=== PATIENT | female | born 1930 | race Caucasian/White ===

== ENCOUNTER 2016-09-23 20:10 | Observation (INO) | payer MEDICARE ==
[2016-09-23 20:53] LABS: URINE APPEARANCE CLEAR; URINE BILIRUBIN NEGATIVE (NEGATIVE); URINE BLOOD 1+ (NEGATIVE); URINE COLOR YELLOW; URINE GLUCOSE (UA) NEGATIVE (NEGATIVE); URINE LEUKOCYTE ESTERASE NEGATIVE (NEGATIVE); URINE NITRITE NEGATIVE (NEGATIVE); URINE PROTEIN 2+ (NEGATIVE); URINE UROBILINOGEN NORMAL (0-1 mg/dl)
[2016-09-23] MEDS ORDERED: ALBUTEROL/IPRATROPIUM 2.5/0.5 MG 3 ML/EACH DOSE ONE (21:01)
[2016-09-23 21:06] LABS: URINE EPITHELIAL CELLS 0 /hpf
[2016-09-23 21:07] LABS: URINE BACTERIA FEW
[2016-09-23 21:20] LABS: BASO % 0.2 % (0.2-1.0); EOS % 0.5 % (0.9-2.9); HEMATOCRIT 44.9 % (37.0-47.0); HEMOGLOBIN 14.7 gm/l (12.0-16.0); IMM NEUT% 0.3 % (0-1); LYMPH # 0.8 (1.0-4.8); LYMPH % 13.5 % (15-45); MEAN CELL VOLUME 95.3 fl (81.0-99.0); MEAN CORPUSCULAR HEMOGLOBIN 31.2 pg (27.0-31.0); MEAN CORPUSCULAR HGB CONC 32.7 g/dl (33.0-37.0); MEAN PLATELET VOLUME 10.3 fl (7.4-10.4); MONO # 0.4 (0.0-0.8); MONO % 5.8 % (4-12); NEUT % 79.7 % (43-75); PLATELET COUNT 164 K/mm3 (130-400); RED CELL DISTRIBUTION WIDTH 13.5 % (11.5-14.5)
[2016-09-23] MEDS ORDERED: PREDNISONE 20 MG TABLET ONE (21:26)
[2016-09-23 21:33] LABS: TROPONIN I 0.03 ng/ml (0.0-0.06)
[2016-09-23 21:37] LABS: CKMB ISOENZYME 3.4 ng/ml (0.6-6.3)
[2016-09-23 21:48] LABS: ALB/GLOB RATIO 1.5 (>1.0); ALBUMIN 4.1 gm/dL (3.5-5.7); CALCIUM 9.5 mg/dL (8.6-10.3)
[2016-09-23] MEDS ORDERED: ACETAMINOPHEN 160 MG/5 ML ORAL.SOLN UDCUP ONE (23:03)
[2016-09-23] MEDS ORDERED: ALBUTEROL SULFATE 5MG/ML INHALANT 20 ML BOT ONE (23:05)
[2016-09-23] MEDS ORDERED: IPRATROPIUM BROMIDE 0.5 MG/2.5 ML DOSE ONE (23:06)
[2016-09-23] MEDS ORDERED: LEVOFLOXACIN 500 MG/D5W 100 ML 100 ML IV ONE (23:09)
[2016-09-23 23:59] VITALS: BMI 26.2
[2016-09-24] MEDS ORDERED: ACETAMINOPHEN 325 MG TABLET PO PRN (02:08)
[2016-09-24] MEDS ORDERED: MAGNESIUM HYDROXIDE 30 ML UDCUP PO PRN (02:08)
[2016-09-24] MEDS ORDERED: MENTHOL/CETYLPYRD 1 EACH LOZENGE PO PRN (02:08)
[2016-09-24] MEDS ORDERED: BLISTEX LIPSTICK 1 EACH TP PRN (02:08)
[2016-09-24] MEDS ORDERED: SODIUM CHLORIDE 0.9% 100 ML IV PRN (02:08)
[2016-09-24] MEDS ORDERED: CALCIUM CARBONATE 500 MG TAB.CHEW PO PRN (02:08)
[2016-09-24] MEDS ORDERED: BISACODYL 5 MG TABLET.EC PO PRN (02:08)
[2016-09-24] MEDS ORDERED: BISACODYL 10 MG SUP PR PRN (02:08)
[2016-09-24] MEDS ORDERED: SODIUM CHLORIDE 0.9% 1,000 ML IV SCH (02:15)
[2016-09-24] MEDS ORDERED: SODIUM CHLORIDE 0.9% 500 ML IV SCH (02:15)
[2016-09-24] MEDS ORDERED: INSULIN ASPART (DOSE) 100 UNITS/1 ML SUB-Q PRN (02:25)
[2016-09-24] MEDS ORDERED: DILTIAZEM HCL 30 MG TABLET PO ONE (02:51)
[2016-09-24] MEDS ORDERED: PUMP TUBING ONE (02:51)
[2016-09-24] MEDS ORDERED: DILTIAZEM HCL 5 MG/ML 5ML VIAL IV ONE (03:48)
--- NOTE | 2016-09-24 06:09 | HP ---
DOUGIE CHILEL [id number] DATE OF ADMISSION: September 24, 2016 CHIEF COMPLAINT: Weakness along with urinary frequency and cough. HISTORY OF PRESENT ILLNESS: The patient is an 85-year-old brought in by family due to cough and weakness along with urinary frequency. Patient reports that she had fallen when getting out of bed the other day and had to lie on the floor about an hour and then her caregiver was able to return her to bed. She denies fevers or chills, denies dysuria but has had some urinary frequency. She has had a cough but has not had a change in her sputum and no major breathing changes. She was seen by Dr. Lim on September 23, 2016 and had a normal urinalysis, was given a prednisone prescription but had not been able to pick this up yet. Due to ongoing weakness, her family brought her to the emergency department and she was noted to have significant difficulty getting up to even walk, and so hospitalist service was requested to admit. PAST MEDICAL HISTORY: Taken from old records as well as discussion with the patient. 1. Chronic obstructive pulmonary disease and had seen Dr. Helton in 2013. Thought to have asthma. At one point in 2009, she was thought to possibly have sarcoidosis, but this was not felt to be the case. 2. Hypertension. 3. Osteoporosis with previous T11 compression fracture. 4. Gastroesophageal reflux disease. 5. Diabetes. 6. History of transient ischemic attack. CODE STATUS: DO NOT RESUSCITATE. PAST SURGICAL HISTORY: 1. Back surgery. 2. Bladder resuspension times two. 3. Hysterectomy for menorrhagia. 4. Cataract replacement. ALLERGIES: NO KNOWN DRUG ALLERGIES. MEDICATIONS: Current medications are not available at this time. Previously she had been on: 1. Acetaminophen. 2. Atorvastatin. 3. Advair. 4. Gabapentin. 5. Glimepiride. 6. [place]. 7. Levothyroxine. 8. Losartan. 9. Metoprolol. 10. Montelukast. 11. Pantoprazole. 12. Potassium gluconate. 13. Ranitidine. 14. Bactrim. SOCIAL HISTORY: She lives at [facility], has a caregiver. She is times two, has three kids. History of smoking, quit about 20 years ago. Reports alcohol now and then. No marijuana or other drugs. Goes to [employer]. Hobbies, she reports doing less but previously enjoyed fishing. FAMILY HISTORY: Father in his 80s. Mom in her 80s. REVIEW OF SYSTEMS: Eyes had cataracts, otherwise doing okay. Ears, okay except for hearing aids. Nose is okay. Mouth is okay. She has dentures. Neck, no complaints. She has had some increased cough but no sputum. No heart complaints, no stomach complaints, no nausea, vomiting, no constipation or diarrhea. No dysuria. Some urinary frequency. Legs, no swelling, no rashes. She has had weakness in her legs but appears to be bilateral. Arms have been okay. Memory, "not worth a damn." She is right-handed. PHYSICAL EXAM: GENERAL: Non-toxic female, color is good. VITAL SIGNS: Temperature 99.2, blood pressure 140/90, pulse 105, saturation 96% on room air, respirations 16. HEAD: Head is normocephalic, atraumatic. EYES: Are normal. EARS: Hearing aids present bilaterally. NOSE: Is normal. MOUTH: Oropharynx is unremarkable with dentures. NECK: No jugular venous distension, no masses. LUNGS: Have some wheezes, right greater than left. Some crackles noted posterior bases. HEART: Slightly hyperdynamic, tachycardic but no significant murmur is noted. ABDOMEN: Soft, nontender, nondistended. Bowel sounds are normal. GENITOURINARY: Exam is deferred. EXTREMITIES: Legs, no clubbing, cyanosis or edema. Dorsalis pedis difficult to feel but posterior tibialis strong bilaterally. Arms, pulses are good. Capillary refill appears to be good. Good grasp bilaterally. NEUROLOGIC: Cranial nerves appear mostly intact although there does appear to be a mild left-sided facial asymmetry with slight loss of the nasolabial fold on the left. She also has slightly slower finger to nose movement on the left. She is oriented to location and month but guesses that it is 2006 instead of 2016. Gait not tested at this time. LABORATORY: White count 6.2, hemoglobin 14.7, platelets 166, sed rate 28, CR-P 5.7, sodium 139, potassium 3.5, chloride 102, CO2 26, BUN 11, creatinine 1.0, glucose 187, calcium 9.5. Liver function tests are normal. CPK 242, troponin 0.03, CK-MB 3.4, BNP 159, albumin 4.1, globulin 2.8. Urinalysis specific gravity 1.010, 2+ protein, 1 to 3 red cells, 1 to 2 white cells. ELECTROCARDIOGRAM: Sinus rhythm 72 beats per minute. Nonspecific ST-T wave changes. IMAGING: Chest x-ray suggests some mild hilar lymphadenopathy, slightly reticular pattern noted bilaterally. Kyphosis noted. Hiatal hernia versus infiltrate suggested on the lateral view. ASSESSMENT AND PLAN: 1. Weakness, nonspecific. Consider for subacute stroke versus illness. Plan physical therapy and occupational therapy evaluation, and if diagnosis not clear, could consider whether further imaging is desired. Patient's family had previously declined CT of the head. If patient is unable to improve, consider revision of home setting and/or other placement. 2. History of chronic obstructive pulmonary disease with wheezes. Plan to review chest x-ray with radiologist further. Patient did get a dose of steroids in the emergency room but holding off on antibiotics at this time. Blood cultures are done. If respiratory status is unclear, could consider CT of the chest. 3. History of urinary frequency but with normal urinalysis times two. Unclear if patient has previously been on suppressive therapy with Bactrim and this may be obscuring somewhat. We will plan to clarify medications in the morning and consider if further treatment appropriate. 4. Hypertension. Plan to check her medications in the morning. 5. Diabetes mellitus type 2. Blood sugar is 187 at this time. Would expect this to go up somewhat with steroid administration. Will be using capillary blood glucose and sliding scale in addition to her regular home medicines. 6. History of atrial fibrillation off anticoagulation due to anemia. She is currently in sinus rhythm and rate is generally controlled. 7. DO NOT RESUSCITATE status. 8. Venous thrombosis prophylaxis, anticipate use of Lovenox. 9. History of osteoporosis, not otherwise addressed. 10. Memory concerns. At this time the patient reports her memory is poor We will consider recheck with occupational therapy. 11. Mildly elevated CPK. This may be from her ground level fall without other injury but this would not rise to the level of rhabdomyolysis. cc: Loren Lim M.D.
--- NOTE | 2016-09-24 07:35 | PDOC36 ---
Provider Note Subject: addendum to H&P Note: Meds - still pending (pharmacy not open yet) Pt noted to have urinary retention, PVR 600; so rodríguez placed. This would be a good explanation for urinary frequency with normal urine Leg strength appears 4-5/5 bilat in both legs. DTRs 1+ at knees bilat, diff to assess at ankles bilat, no clonus Pt reports she feels fine, doing well. Atrial fib/flutter converted, now in 70s.
--- NOTE | 2016-09-24 07:56 | RAD ---
Exam: Two-view chest COMPARISON: 06/12/2014, 02/21/2014 INDICATION: Cough. FINDINGS: PA and lateral views of the chest were obtained. Cardiac silhouette is within normal limits and stable. Large hiatal hernia is again appreciated. Lungs are normally inflated. There is focal eventration of the right hemidiaphragm. There is no focal airspace disease or pleural effusion. There is a compression fracture at approximately T11 which is new since 2013, but described on the 12/01/2015 CT abdomen. Bones of the chest wall otherwise unremarkable. IMPRESSION: No acute pulmonary process.
[2016-09-24] MEDS ORDERED: PANTOPRAZOLE 40 MG TABLET DR PO SCH (09:00)
[2016-09-24] MEDS ORDERED: DILTIAZEM HCL 30 MG TABLET PO SCH (09:00)
[2016-09-24] MEDS ORDERED: DOCUSATE SODIUM 100 MG CAPSULE PO SCH (09:00)
[2016-09-24] MEDS ORDERED: ENOXAPARIN SODIUM 40 MG/0.4 ML SYRINGE SUB-Q SCH (09:00)
[2016-09-24] MEDS ORDERED: DILTIAZEM HCL CD 120 MG CAPSULE PO SCH (11:30)
[2016-09-24 11:32] VITALS: BP 126/67
--- NOTE | 2016-09-24 12:51 | PDOC36 ---
Provider Note Subject: update Patient doing very well, walked 250+ feet, did well with PT. Family happy with how she's doing, would be interested in returning to home. Reviewed with pt and family, anticipate going home on meds, adding diltiazem, and to follow up with Dr Lim.
[2016-09-24] MEDS ORDERED: ATORVASTATIN CALCIUM 10 MG TABLET PO SCH (21:00)
[2016-09-24] MEDS ORDERED: GABAPENTIN 100 MG CAPSULE PO SCH (21:00)
[2016-09-24] MEDS ORDERED: LATANOPROST 0.005% 50 GTTS/2.5 ML BOT SOLN.DROP OU SCH (21:00)
[2016-09-24] MEDS ORDERED: METOPROLOL TARTRATE 25 MG TABLET PO SCH (21:00)
[2016-09-25] MEDS ORDERED: LEVOTHYROXINE SODIUM 88 MCG TABLET PO SCH (07:30)
[2016-09-25] MEDS ORDERED: MONTELUKAST SODIUM 10 MG TABLET PO SCH (09:00)
[2016-09-25] MEDS ORDERED: LOSARTAN POTASSIUM 50 MG TABLET PO SCH (09:00)
[2016-09-25] MEDS ORDERED: POTASSIUM CHLORIDE 10 MEQ TAB.SR PO SCH (09:00)
[2016-09-25] MEDS ORDERED: SULFAMETHOXAZOLE 800 MG/TRIMETHOPRIM 160 MG TABLET PO SCH (09:00)
[2016-09-25] MEDS ORDERED: GLIMEPIRIDE 1 MG TABLET PO SCH (09:00)
--- NOTE | 2016-09-25 12:36 | DS ---
Kayla Julio DATE OF ADMISSION: 09/24/2016 DISCHARGE DIAGNOSES: 1. Weakness attributed to atrial flutter with rapid ventricular response and now converted. 2. Urinary frequency attributed to urinary retention. 3. Cough attributed to chronic asthma. 4. Hypertension. 5. Osteoporosis with previous compression fracture. 6. Gastroesophageal reflux disease. 7. Diabetes. 8. History of transient ischemic attack. REASON FOR ADMISSION: The patient is an 85-year-old female brought in by family due to cough, weakness, along with urinary frequency. She had been evaluated. She had been getting out of bed and had to lie on the floor for an hour and then her caregiver was able to return her to her bed. She did not have fevers, chills, or dysuria, but had urinary frequency. She has had some cough, but no change in her sputum and no major breathing changes. She was seen by Dr. Castillo September 23 and had a normal urinalysis so was given prednisone prescription that she had not been able to fill. With her ongoing weakness she was brought to the emergency department and was noted to have significant difficulties getting up to even walk, so hospitalist service was requested to admit. The patient's admission labs were not particularly remarkable, a white count of 6.2, hemoglobin of 14.7, platelets 164, sed rate 28. Her electrolytes shows a sodium of 139, potassium 3.5, BUN 11. creatinine 1.0, glucose 187, calcium 9.5. Liver enzymes normal. CK of 242, troponin 0.03, CK-MB of 3.4. TSH 0.8, albumin 4.1. Urinalysis had 1-3 red cells, 1-2 white cells and patient had a chest x-ray which was read as no acute pulmonary process. Patient was evaluated and noted to have a tachycardia on the floor and the monitor showed evidence of atrial flutter with rate up to 140 beats per minute. She was given diltiazem IV x1 and then orals and later converted to sinus rhythm. She also received one dose of Solu-Medrol in the emergency department. By early afternoon of September 24 patient was able to walk well with physical therapy over 250 feet without difficulty using a walker and her family indicated that she was at baseline and would be very interested in returning home. Patient's blood cultures are negative at this time and blood pressures have remained stable. She is anticipated to be discharged to home resuming her previous medicines with the exception of stopping the amlodipine and to not take the prednisone prescribed previously. DISCHARGE MEDICATIONS: She will be on: 1. Atorvastatin 10 mg by mouth at bedtime. 2. Levothyroxine 88 mcg by mouth daily. 3. Montelukast 10 mg by mouth daily. 4. Metoprolol 25 mg by mouth twice daily. 5. Bactrim DS 1 by mouth daily. 6. Losartan 25 mg daily. 7. Potassium 10 mEq by mouth daily. 8. Xalatan 1 drop both eyes at bedtime. 9. Amaryl 1 mg by mouth every morning. 10. Gabapentin 200 mg at bedtime. 11. Diltiazem CD 120 mg by mouth daily. 12. She was previously on anticoagulation, but this was stopped due to previous history of anemia. She may consider discussing this with Dr. Lim again. She is advised to avoid caffeine and will follow up with Dr. Lim regarding her medicines and whether it will be preferable to use higher doses of beta conrado or calcium channel conrado with her history of chronic obstructive pulmonary disease and asthma. ACTIVITY: Use walker when up. JOB: [id number] CC: Dr. Loren Lim
== END 2016-09-24 17:02 | disposition home or self-care (01) ==
LOC: ED 20:10 → MS 23:16
PROVIDERS: ADMIT Family Medicine; ATTEND Family Medicine
DX: J44.1 Chronic obstructive pulmonary disease with (acute) exacerbation (principal); I10 Essential (primary) hypertension; M81.0 Age-related osteoporosis without current pathological fracture; E11.9 Type 2 diabetes mellitus without complications; Z66 Do not resuscitate; Z87.891 Personal history of nicotine dependence; R35.0 Frequency of micturition; I48.91 Unspecified atrial fibrillation; R33.9 Retention of urine, unspecified; K21.9 Gastro-esophageal reflux disease without esophagitis